=== PATIENT | female | born 1990 | race Two or more races ===

== ENCOUNTER → 2022-02-20 | Emergency (ER) | payer OTHER ==
[~2022-02-20] VITALS: Ht 162.6 cm; Wt 99.8 kg
[~2022-02-20] MED LIST: DICLOFENAC SODI75 MG PO; NORFLEX100MG PO
== END | disposition home or self-care (01) ==
LOC: ER 17:56
DX: M54.30 Sciatica, unspecified side (principal)

== ENCOUNTER 2022-03-31 03:27 | Emergency (ER) | payer OTHER ==
[~2022-03-31] VITALS: Ht 162.6 cm; Wt 104.3 kg
== END 2022-03-31 08:21 ==
LOC: ER 03:27
DX: R07.89 Other chest pain (principal)

== ENCOUNTER 2023-07-08 06:32 | Emergency (ER) | payer OTHER ==
[~2023-07-08] VITALS: Ht 165.1 cm; Wt 86.2 kg
[2023-07-08 09:08] LABS: HEMATOCRIT 38.2 % (36.0-45.00); HEMOGLOBIN 12.9 g/dL (12.0-15.00); MEAN CELL VOLUME 83.7 fL (80.00-100.00); MEAN CORPUSCULAR HEMOGLOBIN 28.3 pg (27.00-32.0); MEAN CORPUSCULAR HGB CONC 33.8 g/dl (32.0-36.0); PLATELET COUNT 261 K/uL (150-450); RED BLOOD COUNT 4.57 M/uL (4.00-6.00); RED CELL DISTRIBUTION WIDTH 13.9 % (11.5-14.5)
== END 2023-07-08 10:13 | disposition home or self-care (01) ==
LOC: ER 06:32
DX: J10.1 Influenza due to other identified influenza virus with other respiratory manifestations (principal); B34.9 Viral infection, unspecified; R53.81 Other malaise; Z20.822 Contact with and (suspected) exposure to COVID-19